=== PATIENT | female | born 1945 | race Caucasian/White ===

== ENCOUNTER → 2019-02-26 | Outpatient (CLI) | payer MEDICARE ==
[2019-02-26 16:58] LABS: Appearance,Urine Clear (Clear); Bilirubin,Urine Negative (Negative); Blood,Urine Negative (Negative); Color,Urine Light Yellow; Glucose,Urine (UA) Negative (Negative); Ketones,Urine Negative (Negative); Leukocyte Esterase,Urine Negative (Negative); Nitrite,Urine Negative (Negative); PH, Urine 5.5 (5.0-8.0); Protein,Urine Negative (Negative); Urobilinogen,Urine <2.0 mg/dL (<2.0)
[2019-02-26 17:02] LABS: Basophils % (A) 0 %; Eosinophils # (A) 0.3 k/uL (0-0.7); Eosinophils % (A) 4 %; HCT 38.7 % (34.0-46.0); HGB 12.8 gm/dL (11.4-16.0); Lymphocytes # (A) 1.4 k/uL (1.0-4.8); Lymphocytes % (A) 23 %; MCH 31.6 pg (25.0-35.0); MCHC 33.2 g/dL (31.0-37.0); MCV 95.4 fL (80.0-100.0); Mean Platelet Volume 7.7; Monocytes # (A) 0.3 k/uL (0-1.0); Monocytes % (A) 5 %; Neutrophils % (A) 65 %; Platelet Count 278 k/uL (150-450); RBC 4.05 m/uL (3.80-5.40); RDW 13.6 % (11.5-15.5); WBC 6.1 k/uL (3.8-10.6)
[2019-02-26 19:24] LABS: Erythrocyte Sedimentation Rate 18 mm/hr (0-20)
[2019-02-27 00:21] LABS: Protein, Total 6.9 g/dL (6.2-8.2)
[2019-02-27 00:25] LABS: Rheumatoid Factor 5 IU/mL (0-15); Streptolysin O Ab(ASO) 165 IU/mL (0-200)
[2019-02-27 00:33] LABS: Vitamin D 25 Hydroxy 47.1 ng/mL (30.0-100.0)
[2019-02-27 01:01] LABS: C Reactive Protein <0.4 mg/dL (0.0-0.8); Phosphorus 4.1 mg/dL (2.4-5.1); Uric Acid 6.9 mg/dL (2.9-7.7)
[2019-02-27 01:02] LABS: ALT 27 U/L (8-44); AST 28 U/L (13-35); Albumin/Globulin Ratio 2.04 (1.60-3.17); Alkaline Phosphatase 80 U/L (41-126); Calcium 9.9 mg/dL (8.7-10.3); Carbon Dioxide 24.1 mmol/L (21.6-31.8); Chloride 108 mmol/L (96-109); Creatine Kinase 93 U/L (26-186); Globulin 2.3 g/dL (1.6-3.3); Glucose 129 mg/dL (70-110); LDH 197 U/L (120-246); Potassium 4.7 mmol/L (3.5-5.5); Sodium 141 mmol/L (135-145); Total Bilirubin 0.3 mg/dL (0.3-1.2)
[2019-02-27 01:04] LABS: Hepatitis C IgG Antibody Non-Reactive (Non-Reactive)
[2019-02-27 01:09] LABS: Parathyroid Hormone Intact 81.7 pg/mL (14.0-72.0)
[2019-02-27 03:47] LABS: Hemoglobin A1C 5.5 % (4.0-6.0)
[2019-02-27 10:58] LABS: HLA B27 NEGATIVE
[2019-02-27 11:19] LABS: Vitamin D, 1, 25-Dihydroxy 32 pg/mL (20 - 79)
[2019-02-27 12:39] LABS: Angiotensin-1 Converting Enz. 27 U/L (8-52)
[2019-02-27 14:21] LABS: Albumin 4.24 g/dL (3.80-4.90); Gamma Globulin 1.04 g/dL (0.70-1.50)
[2019-02-27 14:50] LABS: Lyme IgG/IgM 0.03 Index
[2019-02-27 16:12] LABS: Hepatits C Virus RNA Not detected (Not detected); Hepatits C Virus RNA, Quant <12 IU/mL (<12); LOG HCV IU/mL <1.08 (<1.08)
[2019-02-28 12:05] LABS: Cyclic Citrullinated Pep IgG 6
[2019-03-01 06:23] LABS: Vit B1(Thiamine) 86 ug/L (38-122)
== END | disposition home or self-care (01) ==
LOC: LABWHC1 15:45
PROVIDERS: ATTEND Physical Medicine & Rehabilitation
DX: M81.0 Age-related osteoporosis without current pathological fracture (principal); M54.5 Low back pain; G89.4 Chronic pain syndrome; Z79.891 Long term (current) use of opiate analgesic; M96.1 Postlaminectomy syndrome, not elsewhere classified; M54.6 Pain in thoracic spine; B02.22 Postherpetic trigeminal neuralgia; M54.16 Radiculopathy, lumbar region; R20.2 Paresthesia of skin; M70.62 Trochanteric bursitis, left hip; M70.61 Trochanteric bursitis, right hip; I70.0 Atherosclerosis of aorta; R53.1 Weakness; Z98.1 Arthrodesis status; Z96.89 Presence of other specified functional implants
CPT/HCPCS: 36415; 80053; 81003; 82164; 82306; 82310; 82550; 82553; 82607; 82652; 83036; 83516; 83520; 83615; 83970; 84100; 84165; 84207; 84425; 84439; 84443; 84550; 85025; 85652; 86038; 86060; 86140; 86200; 86235; 86431; 86618; 86803; 86812; 87522